=== PATIENT | female | born 1990 | race Caucasian/White ===

== ENCOUNTER → 2017-01-27 | Outpatient (CLI) | payer BC ==
[2017-01-27 17:06] LABS: Basophils % (A) 1 %; CHCM 35.2; Eosinophils # (A) 0.2 k/uL (0-0.7); Eosinophils % (A) 2 %; HDW 2.65; HGB 13.9 gm/dL (11.4-16.0); Luc % (Auto) 3; Lymphocytes # (A) 1.9 k/uL (1.0-4.8); Lymphocytes % (A) 30 %; MCHC 33.8 g/dL (31.0-37.0); MCV 88.5 fL (80.0-100.0); Mean Platelet Volume 7.3; Monocytes # (A) 0.6 k/uL (0-1.0); Monocytes % (A) 9 %; Neutrophils # (A) 3.5 k/uL (1.3-7.7); Neutrophils % (A) 55 %; RBC 4.63 m/uL (3.80-5.40); RDW 12.9 % (11.5-15.5); WBC 6.4 k/uL (3.8-10.6); WBC (Perox) 6.66
== END | disposition home or self-care (01) ==
LOC: LABPAT 16:33
PROVIDERS: ATTEND Obstetrics & Gynecology
DX: Z01.812 Encounter for preprocedural laboratory examination (principal); Z97.5 Presence of (intrauterine) contraceptive device
CPT/HCPCS: 85025

== ENCOUNTER 2017-02-03 08:27 | Day surgery (SDC) | payer BC, OTHER ==
--- NOTE | 2017-01-29 18:49 | HP ---
DATE OF ADMISSION: HISTORY: This is a 27-year-old 1, para one woman who has a Mirena intrauterine device. This device was due to be removed and the IUD strings are not visible in the office. Ultrasound confirms normal intrauterine placement of the IUD; however attempts at removal in the office have been unsuccessful and intolerable to the patient secondary to discomfort. She is therefore admitted for exam under anesthesia, hysteroscopy and removal of Mirena IUD. ALLERGIES: NONE. MEDICATIONS: None. PAST MEDICAL HISTORY: Allergic rhinitis. PAST SURGICAL HISTORY: Tonsils and adenoidectomy. [place] teeth extraction. Past [employer] history: She is a 1, para one with a history of one term normal spontaneous vaginal delivery. No history of abnormal Pap smears. SOCIAL HISTORY: . Negative for tobacco, alcohol and drug use. FAMILY HISTORY: Significant for breast cancer in a grandmother. High blood pressure in her father. REVIEW OF SYSTEMS: Negative except for that described above. PHYSICAL EXAM: Height 5, 3-1/2, weight 228 pounds, pulse 96, blood pressure 122/80. In general this is an obese female in no apparent distress. HEENT exam is unremarkable. The lungs are clear to auscultation bilaterally and the heart is a regular rate and rhythm. The abdomen is obese, soft and nontender. On pelvic examination, she has normal female external genitalia without lesions or irritation. On speculum examination, the cervix is grossly normal in appearance and IUD strings are not visible. On bimanual examination, the uterus is small, freely mobile and in the midline. It is nontender. ASSESSMENT: A 27-year-old 1, para one woman with retained Mirena IUD. She is scheduled to undergo diagnostic hysteroscopy and removal of Mirena IUD. Risks of this procedure have been reviewed with the patient in the office setting and include bleeding, infection, uterine perforation with possible damage to internal structures. The patient voices understanding of these risks and agrees to proceed. She is scheduled for the above-named procedure on 02/03/2017.
[2017-01-31 11:34] VITALS: BMI 38.9
[~2017-02-03 08:27] MED LIST: DEXAMETHASONE SOD PHOSPHATE 10 MG/ML 1 ML VIAL IV ONE; HYDROmorphone 1 MG/ML 1 ML SYRINGE IVP PRN; LACTATED RINGERS 1,000 ML IV SCH; MIDAZOLAM 2 MG/2 ML VIAL IV PRN; ONDANSETRON 4 MG/2 ML VIAL IVP ONE; Pre Op ABX Message 1 EACH MISC MISCELLANE ONE; SCOPOLAMINE 1.5MG/72HR PATCH TRANSDERM ONE
[2017-02-03 09:02] VITALS: TEMP 98.7
[2017-02-03] MEDS ORDERED: LIDOCAINE 1% 20 ML VIAL (10MG/ML) FOR IV START INTRADERMA ONE (09:14)
[2017-02-03] MEDS ORDERED: PROPOFOL 10 MG/ML 20 ML VIAL IV ONE (09:34)
[2017-02-03] MEDS ORDERED: fentaNYL (PF) 50 MCG/ML 2 ML AMP ONE (09:34)
[2017-02-03] MEDS ORDERED: SUCCINYLCHOLINE CHLORIDE 100 MG/5 ML SYR IV ONE (09:34)
[2017-02-03] MEDS ORDERED: LIDOCAINE 1% INJ 10MG/ML (20 ML MDV) ONE (09:34)
[2017-02-03] MEDS ORDERED: MIDAZOLAM 2 MG/2 ML VIAL ONE (09:34)
[2017-02-03] MEDS ORDERED: LIDOCAINE 1%-EPI 1:100,000 20 ML VIAL SUBMUCOSAL ONE ×3 (09:43→09:53)
--- NOTE | 2017-02-03 10:06 | P.OP ---
Date of Procedure: 02/03/17 Preoperative Diagnosis: Retained IUD Postoperative Diagnosis: Same Procedure(s) Performed: Hysteroscopy and removal of intrauterine device Anesthesia: DEVAN Surgeon: Velma Saha Estimated Blood Loss (ml): 5 IV fluids (ml): 400 Urine output (ml): 25 Pathology: other (IUD) Condition: stable Disposition: PACU Indications for Procedure: Patient has a Mirena intrauterine device that is confirmed in appropriate placement in the uterine cavity however IUD strings are not visible for removal. She could not tolerate attempted on removal in the office secondary to discomfort. Operative Findings: On hysteroscopy IUD is in normal intrauterine placement. The IUD strings appear wrapped around the base of the IUD. Description of Procedure: Patient was met in the preoperative holding area and all questions were answered , she was taken to the operating room where anesthetic was administered without incident. She was in positioned, prepped and draped in the dorsal lithotomy position. Bladder was drained for approximately 25 mL of clear urine. Speculum was placed in the vagina and the cervix was grasped anteriorly with a single-tooth tenaculum. Paracervical block with lidocaine plus epinephrine was placed. The uterus was sounded to 8.5 cm. The cervix was easily dilated to allow for passage of the diagnostic hysteroscope. The hysteroscope was introduced and the IUD appeared to be in the intrauterine cavity and a normal position. None of the arms appeared to be in padded or otherwise on stuck in the uterine wall. The IUD strings were wrapped around the base of the IUD. The hysteroscope was removed. A long forceps were introduced into the uterus and the IUD base was grasped easily and the IUD was removed without difficulty. The IUD was inspected and appeared grossly normal. Instruments were then removed from the vagina. No active bleeding was noted. She was awoken from anesthetic without incident and transported to recovery in stable condition.
[2017-02-03 11:03] VITALS: RESP 18
[2017-02-03 12:05] VITALS: BP 133/90; PULSE 88
== END 2017-02-03 12:05 | disposition home or self-care (01) ==
LOC: OR 08:27
PROVIDERS: ATTEND Obstetrics & Gynecology
DX: Z30.432 Encounter for removal of intrauterine contraceptive device (principal)
CPT/HCPCS: 81025; 88300; 58579; J2250; J1100; J2405; J2001; J3010; J0330; J2704